=== PATIENT | female | born 1980 | race Caucasian/White ===

== ENCOUNTER 2016-08-11 20:20 | Emergency (ER) | payer OTHER ==
--- NOTE | 2016-08-11 20:32 | PDOC ---
History of Present Illness - General History Source: Patient, Old Records Exam Limitations: No Limitations - History of Present Illness Initial Comments: The patient is a 36 year old female with no significant past medical history, who presents to the emergency department today for further evaluation of cramping, nausea, and diarrhea since Wednesday. The patient states that she went out to dinner Wednesday and symptoms began the next day. The patient states that she recently saw her primary care physician after her symptoms progressively worsened, was diagnosed with a minor case of food poisoning, and sent home on antibiotics. The patient notes that she took her first dose of antibiotics today and reports since seeing her PCP her symptoms have continued to worsen. She describes her stomach pain as burning and cramping in sensation with associated chills. She states that she has gone to the bathroom approximately every 20 minutes and that her stool is watery. PAST MEDICAL HISTORY: Borderline hyperlipidemia PAST SURGICAL HISTORY: No significant history reported FAMILY HISTORY: Father: With defibrillator, Quadruple bypass, diabetes, neuropathy. SOCIAL HISTORY: None reported MEDICATIONS: Reviewed ALLERGIES: As per nursing notes <Doe Dasilva - Last Filed: 08/11/16 20:49> - General History Source: Patient Exam Limitations: No Limitations - History of Present Illness Initial Comments: 08/11/16 22:16 A portion of this note was documented by scribe services under my direction. I have reviewed the details of the note, within reason, and agree with the documentation. The case summary and management plan written by me. Assessment and plan: This is a 36-year-old female who comes in complaining of some nausea and diarrhea times several days. Patient saw her primary care doctor and was started on an antibiotic today and the diarrhea is improving however she still has some crampy abdominal pain. Patient has not taken anything for the pain. On arrival patient was clinically very dehydrated and required 2 L of IV normal saline Patient's white count was mildly elevated however the rest of her labs were unremarkable Patient felt much better after 2 L of saline and some Pepcid and Carafate Patient discharged home will follow-up with her primary care doctor as needed. <Cindi Gallegos I - Last Filed: 08/11/16 22:18> - General Chief Complaint: Pain Stated Complaint: ABD CRAMPING, DIARRHEA, NAUSEA Time Seen by Provider: 05/16/17 20:21 Past History <Doe Dasilva - Last Filed: 08/11/16 20:49> - Past Medical History Psychiatric Problems: Yes (ANXIETY) - Surgical History Abdominal Surgery: Yes (UMBILICAL MESH) - Psycho/Social/Smoking Cessation Hx Anxiety: No Suicidal Ideation: No Smoking History: Never smoked Hx Alcohol Use: No Drug/Substance Use Hx: No <Cindi Gallegos I - Last Filed: 08/11/16 22:18> - Past Medical History Allergies/Adverse Reactions: Allergies Allergy/AdvReac Type Severity Reaction Status Date / Time Penicillins Allergy Verified 08/11/16 20:24 Home Medications: Ambulatory Orders Control Pills 1 tab PO ASDIR 08/11/16 Ciprofloxacin HCl [Cipro] 500 mg PO BID 08/11/16 Citalopram Hydrobromide [Celexa -] 20 mg PO DAILY 08/11/16 Review of Systems - Review of Systems Able to Perform ROS?: Yes Comments:: General: (+) Chills. No weakness, no weight loss HEENT: No change in vision. No sore throat, No ear pain CardioVascular: No chest pain or shortness of breath Respiratory:No cough, or wheezing. Gastrointestinal: (+) Diarrhea, nausea, abdominal pain. No constipation, No rectal bleeding Genitourinary: No dysuria, hematuria, or frequency Musculoskeletal: No joint or muscle pain or swelling Neurologic: No headache, vertigo, dizziness or loss of consciousness Psychiatric: nor depression Skin: No rashes or easy bruising Endocrine: no increased thirst or abnormal weight change Allergic: no skin or latex allergy All other systems reviewed and normal <Doe Dasilva - Last Filed: 08/11/16 20:49> *Physical Exam - Vital Signs Last Vital Signs Temp Pulse Resp BP Pulse Ox 99.2 F 102 H 20 128/60 99 08/11/16 20:20 08/11/16 20:20 08/11/16 20:20 08/11/16 20:20 08/11/16 20:20 - Physical Exam Comments: General: Well-nourished well-developed individual, no acute distress HEENT: Throat: Normal, tonsils normal, no erythema or exudate Neck: Supple, no meningeal signs, no lymphadenopathy Eyes::Pupils equal reactive and round, extraocular motion intact Chest: Nontender to palpation Cardiac: S1-S2 normal, regular rate and rhythm, no murmurs rubs or gallops Respiratory: Lungs clear to auscultation bilateral Abdomen: (+) Soft, nondistended, normal bowel sounds, Mildly tender to palpation diffusely. Moderately tender to palpation in epigastric and RUQ regions. Extremities: Warm, dry, no cyanosis, clubbing, or edema Skin: No rashes Neuro: Alert and oriented x3, nonfocal exam, grossly intact, normal gait Psych: Normal mood and affect <Doe Dasilva - Last Filed: 08/11/16 20:49> - Vital Signs Last Vital Signs Temp Pulse Resp BP Pulse Ox 99.2 F 102 H 20 128/60 99 08/11/16 20:20 08/11/16 20:20 08/11/16 20:20 08/11/16 20:20 08/11/16 20:20 <Cindi Gallegos I - Last Filed: 08/11/16 22:18> Heart Score/ECG Review - ECG Impressions Comment:: Normal sinus rhythm. Normal ECG. <Doe Dasilva - Last Filed: 08/11/16 20:49> ED Treatment Course - LABORATORY CBC & Chemistry Diagram: 08/11/16 20:59 08/11/16 20:59 <Cindi Gallegos I - Last Filed: 08/11/16 22:18> *DC/Admit/Observation/Transfer - Attestations Scribe Attestion: Documentation prepared by Doe Dasilva, acting as medical equipment repair technician for Cindi Gallegos MD. <Doe Dasilva - Last Filed: 08/11/16 20:49> - Discharge Dispostion Admit: No <Cindi Gallegos I - Last Filed: 08/11/16 22:18> Diagnosis at time of Disposition: Dehydration Diarrhea Qualifiers: Diarrhea type: unspecified type Qualified Code(s): R19.7 - Diarrhea, unspecified - Discharge Dispostion Disposition: HOME Condition at time of disposition: Stable - Patient Instructions Additional Instructions: You can purchase some [id number] Imodium and take as directed on the bottle for the diarrhea. Take the antibiotics you doctor prescribed as directed. Return to the emergency department immediately with ANY new, persistent or worsening symptoms. Continue any medications as previously prescribed by your physician. You should follow up with your primary doctor as soon as possible regarding today's emergency department visit. . Please make sure your doctor reviews the results of your emergency evaluation. Thank you for coming to the Emergency Department today for your care. It was a pleasure to see you today. Please note that your evaluation is INCOMPLETE until you follow-up with your doctor.
[2016-08-11 20:34] VITALS: BP 128/60; PULSE 102; TEMP 99.2; BMI 22.1
[2016-08-11] MEDS ORDERED: SODIUM CHLORIDE 1,000 ML IV ONE ×2 (20:39→22:02)
[2016-08-11] MEDS ORDERED: SUCRALFATE 1 GM/10 ML UNIT DOSE CUPS PO STA (20:40)
[2016-08-11] MEDS ORDERED: HYOSCYAMINE SULFATE 0.125 MG *ODT PO ONE (20:40)
[2016-08-11] MEDS ORDERED: FAMOTIDINE 20 MG/50 ML IVPB 50 ML IVPB ONE ×3 (20:40→21:02)
[2016-08-11] MEDS ORDERED: HYOSCYAMINE SULFATE 0.125 MG *ODT ONE (21:01)
[2016-08-11 21:15] LABS: URINE APPEARANCE Clear; URINE BILIRUBIN 1+ (NEGATIVE); URINE GLUCOSE (UA) Negative (NEGATIVE); URINE KETONE 1+ (NEGATIVE); URINE LEUK ESTERASE Negative (NEGATIVE); URINE NITRITE Negative (NEGATIVE); URINE UROBILINOGEN 0.2 E.U/dl (0.2-1.0)
[2016-08-11 21:20] LABS: URINE BLOOD 2+ (NEGATIVE); URINE COLOR YELLOW; URINE PROTEIN 1+ (NEGATIVE)
[2016-08-11 21:22] LABS: BASOPHIL 0.3 % (0-2.0); EOSINOPHIL 0.3 % (0-4.5); MCH 29.6 pg (25.7-33.7); MEAN CELL VOLUME 87.2 fl (80-96); MEAN PLT VOLUME 8.8 fl (7.5-11.1); NEUTROPHILS 84.6 % (42.8-82.8); PLATELET COUNT 261 K/MM3 (134-434); RDW 11.8 % (11.6-15.6); WHITE BLOOD COUNT 12.5 K/mm3 (4.0-10.8)
[2016-08-11 21:29] LABS: URINE BACTERIA FEW /hpf (NEGATIVE); URINE WBC 0-2 (3-5)
[2016-08-11 21:35] LABS: CPK(DFH) 56 IU/L (26-140)
[2016-08-11 21:35] LABS: ALBUMIN 3.8 g/dl (3.5-5.0); ALK PHOS 51 U/L (32-92); ANION GAP 10 (8-16); BILIRUBIN,TOTAL 0.6 mg/dl (0.2-1.0); CALCIUM 8.7 mg/dl (8.4-10.2); CO2 23 mmol/L (22-28); CREATININE 0.8 mg/dl (0.6-1.3); GLUCOSE,RANDOM 87 mg/dl (74-106); SGOT/AST 15 U/L (10-42); SGPT/ALT 13 U/L (10-40); TOT PROT 6.8 g/dl (6.4-8.3)
[2016-08-11 21:53] LABS: TROPONIN I (DFP) < 0.03 ng/ml (0.03-0.50)
--- NOTE | 2016-08-12 15:08 | EKG ---
Test Reason : Blood Pressure : / mmHG Vent. Rate : 096 BPM Atrial Rate : 096 BPM P-R Int : 150 ms QRS Dur : 082 ms QT Int : 356 ms P-R-T Axes : 071 063 058 degrees QTc Int : 449 ms POOR DATA QUALITY, INTERPRETATION MAY BE ADVERSELY AFFECTED NORMAL SINUS RHYTHM NO PREVIOUS ECGS AVAILABLE Confirmed by MD BEARD MARJORY ([id number]) on 08/12/2016 3:07:57 PM Referred By: DR MOREIRA Confirmed By:RICKY BEARD MD
== END 2016-08-11 22:56 | disposition home or self-care (01) ==
LOC: FER 20:20
PROC: 3E033GC Introduction of Other Therapeutic Substance into Peripheral Vein, Percutaneous Approach (ICD-10-PCS; principal; 2016-08-11)
PROC: 3E0337Z Introduction of Electrolytic and Water Balance Substance into Peripheral Vein, Percutaneous Approach (ICD-10-PCS; 2016-08-11)
DX: E86.0 Dehydration (principal); R19.7 Diarrhea, unspecified
CPT/HCPCS: 36415; 80053; 81003; 81015; 82550; 83690; 84484; 84703; 85025; 93005; 99284-25